=== PATIENT | female | born 1965 | race Caucasian/White ===

== ENCOUNTER → 2017-01-14 | Outpatient (CLI) | payer BC ==
--- NOTE | ~2017-01-14 | CT55 ---
[facility] A Service [facility] RADIOLOGY TEXT RESULTS PATIENT: SONNY RIVERA LOCATION: [facility] : 63 UNIT #: [id number] AGE: [address]: Shree Weller MD SEX: F ORDER DR: [id number] [place] [id number] [facility]. [place], [place] [address] [id number] O MR#: [id number] [facility] #: [id number] NAME: SONNY RIVERA : 1965 SEX: F STUDY DATE/TIME: 01/14/2017 15:40 UNIT: [facility] ROOM: STUDY DESCRIPTION: CT Chest W Con Attending Physician: Shree Weller M.D. Ordering Physician: Shree Weller M.D. Primary Care Physician: Jordan Austin M.D. MEDICAL IMAGING REPORT This report is preliminary unless electronic signature is present EXAM CT of the chest with contrast. DATE OF EXAM 01/14/2017 INDICATION Cough for 8 weeks. Patient also apparently had an abnormal chest radiograph on December 30, 2016, which showed a possible nodule within the right infrahilar region. TECHNIQUE Axial CT images were obtained from the thoracic inlet through the dome of the diaphragm following the administration of intravenous contrast material. NOTE: This CT exam was performed with one or more of the following radiation dose reduction techniques: automatic exposure control, adjustment of mA and/or kV according to patient size, and iterative reconstruction. FINDINGS The lungs appear clear. No focal infiltrates are seen. No suspicious pulmonary nodules or masses are identified. The thyroid gland, trachea and esophagus appear unremarkable. There is no pleural or pericardial effusion, mediastinal lymph nodes do not appear pathologically enlarged. I do not see any acute abnormalities within the upper abdomen. Review of bony windows does not demonstrate any aggressive osseous abnormalities. IMPRESSION No acute intrathoracic process is identified. No infiltrates are seen. No correlate for the potential nodule seen on the December 30, 2016 radiograph is identified. I suspect it was probably artifactual and related to summation shadows. [facility] A Service [facility] RADIOLOGY TEXT RESULTS PATIENT: [facility]ON[facility]IVERA [id number] 63 UNIT #: [id number] AGE: [address]: Shree Weller MD SEX: F ORDER DR: Dictated by... Quin Quinn M.D. THIS IS AN ELECTRONICALLY VERIFIED REPORT Quin Quinn M.D. at 01/17/2017 4:46 PM AFF/jt TD: 01/14/2017 22:30 JOB #: [id number] MEDICAL IMAGING REPORT Page 1 of 1 COPY
[2017-01-14 16:06] LABS: POC - CREATININE 0.89 mg/dL (0.44-1.03); POC - GFR >60.0 mL/min (>60)
== END | disposition home or self-care (01) ==
LOC: CCAT 15:07
PROVIDERS: Family Medicine
DX: R05 Cough (principal); R93.8 Abnormal findings on diagnostic imaging of other specified body structures
CPT/HCPCS: 71260; 82565; Q9967

== ENCOUNTER 2017-02-24 19:50 | Emergency (ER) | payer BC ==
--- NOTE | ~2017-02-24 | EKG ---
PATIENT: SONNY RIVERA UNIT #: [id number] Ventricular Rate: 63 BPM Atrial Rate: 63 BPM P-R Interval: 160 ms QRS Duration: 94 ms Q-T Interval: 418 ms QTC Calculation(Bezet): 427 ms P [place]: 9 degrees Calculated R [place]: -51 degrees Calculated T [place]: 32 degrees Diagnosis Line: Normal sinus rhythm Diagnosis Line: Pulmonary disease pattern Diagnosis Line: Incomplete right bundle branch block Diagnosis Line: Left anterior fascicular block Diagnosis Line: Abnormal ECG Diagnosis Line: No previous ECGs available Diagnosis Line: Confirmed by ZAYRA DOMINGUEZ MD ([id number]) on 02/27/2017 Diagnosis Line: 4:00:22 PM INTERPRETING MD: ALBERTO GANDHI
--- NOTE | ~2017-02-24 | CR72 ---
[facility] A Service of [facility] RADIOLOGY TEXT RESULTS PATIENT: SONNY RIVERA LOCATION: [facility] : 63 UNIT #: [id number] AGE: [address]: Roly Diaz MD SEX: F ORDER DR: [id number] [facility] [address] [place], [place] [address] [id number] E MR#: [id number] Acc #: [id number] NAME: SONNY RIVERA : 1965 SEX: F STUDY DATE/TIME: 02/24/2017 18:39 UNIT: [facility] ROOM: STUDY DESCRIPTION: CR Chest Single View Portable Attending Physician: Roly Diaz M.D. Ordering Physician: Roly Diaz M.D. Primary Care Physician: Jordan Austin M.D. MEDICAL IMAGING REPORT This report is preliminary unless electronic signature is present EXAM Portable chest. DATE OF EXAM 02/24/2017 HISTORY Chest pain and left arm pain for 2 weeks. Cough. COMPARISON Chest, 12/30/2016. FINDINGS Frontal chest demonstrates clear lungs. No pleural effusion or pneumothorax. Heart size and mediastinum normal. Pulmonary vasculature normal. IMPRESSION No acute cardiopulmonary findings. Dictated by... Oscar Winters M.D. THIS IS AN ELECTRONICALLY VERIFIED REPORT Oscar Winters M.D. at 02/25/2017 4:26 PM KAMILA/sameera TD: 02/24/2017 22:58 JOB #: [id number] MEDICAL IMAGING REPORT Page 1 of 1 COPY
[2017-02-24 18:21] LABS: POC - CKMB <1.0 ng/mL (0.0-7.9); POC - TROPONIN <0.05 ng/mL (<=0.05)
[2017-02-24 18:40] LABS: BASOPHIL% 0.5 % (0-2.5); EOSINOPHIL# 0.1 X10e3 (0-0.7); EOSINOPHIL% 1.5 % (0.0-7.0); HEMATOCRIT 40.4 % (35.0-45.0); HEMOGLOBIN 13.5 gm/dL (12.0-16.0); LYMPHOCYTE# 1.8 X10e3 (1.0-3.5); LYMPHOCYTE% 27.6 % (17.0-45.0); MEAN CELL VOLUME 88.5 FL (83-96); MEAN CORPUSCULAR HEMOGLOBIN 29.6 PG (28-34); MEAN CORPUSCULAR HGB CONC 33.5 g/dL (30-36); MEAN PLATELET VOLUME 9.9 FL (6.5-11.5); MONOCYTE# 0.7 X10e3 (0-1.0); MONOCYTE% 10.4 % (3.0-12.0); NEUTROPHIL# 3.8 X10e3 (1.5-7.1); PLATELET COUNT 211 X10e3 (140-420); RED BLOOD COUNT 4.57 X10e (3.90-5.30); RED CELL DISTRIBUTION WIDTH 12.4 % (11.0-15.5); WHITE BLOOD COUNT 6.4 X10e3 (4.0-10.5)
[2017-02-24 18:45] LABS: DIFF IND NO
[2017-02-24 19:01] LABS: ALBUMIN SERUM 4.1 g/dL (3.5-5.0); ALKALINE PHOSPHATASE 55 U/L (32-92); ALT (SGPT) 28 U/L (10-40); AST (SGOT) 26 U/L (10-42); BILIRUBIN,TOTAL 0.5 mg/dL (0.2-2.0); BLOOD UREA NITROGEN 18 mg/dL (9-23); CALCIUM SERUM 8.8 mg/dL (8.4-10.2); CARBON DIOXIDE 27 mmol/L (22-31); CHLORIDE 104 mmol/L (100-111); GLOM FILT RATE Estimated 64.8 mL/min (>60); GLUCOSE FASTING 91 mg/dL (70-110); POTASSIUM 3.8 mmol/L (3.5-5.1); PROTEIN TOTAL SERUM 7.4 g/dL (6.0-8.3); SODIUM 137 mmol/L (135-145)
[2017-02-24 19:03] LABS: BILIRUBIN, DIRECT <0.1 mg/dL (0.0-0.2); BILIRUBIN,INDIRECT 0.4 mg/dL (0.0-0.9)
[2017-02-24 20:41] LABS: POC - CKMB <1.0 ng/mL (0.0-7.9); POC - TROPONIN <0.05 ng/mL (<=0.05)
== END 2017-02-24 20:45 | disposition home or self-care (01) ==
LOC: CED 19:50
PROVIDERS: Emergency Medicine
DX: R07.89 Other chest pain (principal); Z90.710 Acquired absence of both cervix and uterus; Z90.49 Acquired absence of other specified parts of digestive tract; Z88.0 Allergy status to penicillin
CPT/HCPCS: 71010; 80048; 80076; 82553; 84484; 85025; 85379; 93005; 99284

== ENCOUNTER → 2017-03-18 | Outpatient (CLI) | payer BC ==
--- NOTE | ~2017-03-18 | ST ---
Unit #: [id number] #: [id number] Patient: SONNY RIVERA [id number] [address] [address] [id number] O MR#: [id number] NAME: SONNY RIVERA. : 1965 SEX: F STUDY DATE/TIME: 03/18/2017 UNIT: [facility] ROOM: STUDY DESCRIPTION: Exercise stress test Attending Physician: Jordan Austin M.D. Primary Care Physician: Jordan Austin M.D. CARDIOLOGY REPORT PROCEDURE PERFORMED Exercise Cardiolite stress test - Exercise portion. DESCRIPTION Resting heart rate is 51. Resting blood pressure is 127/77 mmHg. Baseline EKG shows sinus bradycardia, poor R wave progression, no significant ST-T wave changes. PROCEDURE The patient was made to exercise on a standard Darrel protocol. Total exercise time is 9 minutes, completing stage 3 of a standard Darrel protocol. Test stopped because target heart rate achieved. No complaints of chest pain or extreme shortness of breath. Cardiolite injection was given at 7 minutes and 54 seconds. Maximal heart rate obtained is 144, which is 85% of maximum predicted heart rate. Maximal blood pressure obtained is 151/[address]-T wave changes suggestive of ischemia. No arrhythmias noted. CONCLUSION 1. Good exercise tolerance. 2. There is no clinical, hemodynamic or EKG evidence of ischemia at good workload (85% of maximum predicted heart rate, 10.4 METS). 3. Normal heart rate and blood pressure response. 4. Normal exercise portion of the stress test. 5. Please correlate with nuclear findings. Dictated by... Rosangela Alvarado/mayito TD: 03/18/2017 16:31 JOB #: [id number] Unit #: [id number] #: [id number] Patient: SONNY RIVERA CARDIOLOGY REPORT Page 1 of 1 X Mandi Mendoza MD <ELECTRONICALLY SIGNED> 05/14/17 5515 CARDIOLOGY REPORT
--- NOTE | ~2017-03-18 | TH ---
Unit #: [id number] #: [id number] Patient: SONNY RIVERA [id number] [address] [address] [id number] O MR#: [id number] NAME: SONNY RIVERA : 1965 SEX: F STUDY DATE/TIME: 03/18/2017 UNIT: [facility] ROOM: STUDY DESCRIPTION: Exercise stress test - Nuclear Attending Physician: Jordan Austin M.D. Primary Care Physician: Jordan Austin M.D. CARDIOLOGY REPORT PROCEDURE PERFORMED Exercise nuclear stress test - Nuclear portion. PROCEDURE Using technetium 99m-labeled Cardiolite, rest and stress SPECT images were obtained. Multiple SPECT images were obtained in various views, including horizontal and vertical long axis and short axis views of the left ventricle. Images were obtained by gated SPECT method. The patient was administered 11.2 mCi of Cardiolite at rest. The patient was administered 32.7 mCi of Cardiolite at peak exercise. Total exercise time is 9 minutes. On the stress images, there is normal perfusion noted. The rest images show normal perfusion. Comparing the rest and stress images, there is no stress-induced ischemia noted. The left ventricular ejection fraction is calculated to be 73%. There is no focal wall motion abnormality seen. CONCLUSION 1. No stress-induced ischemia noted. 2. The left ventricular ejection fraction is calculated to be 73%. 3. There is no focal wall motion abnormality seen. 4. Normal exercise Cardiolite stress test. Dictated by... Rosangela Alvarado TD: 03/18/2017 16:29 JOB #: [id number] CARDIOLOGY REPORT Page 1 of 1 X Mandi Mendoza MD <ELECTRONICALLY SIGNED> 05/14/17 1429 CARDIOLOGY REPORT
== END | disposition home or self-care (01) ==
LOC: CNUC 07:02
DX: R07.89 Other chest pain (principal)
CPT/HCPCS: 78452; 93017; A9500